=== PATIENT | male | born 1965 | race Native Hawaiian/Other Pacific Islander ===

== ENCOUNTER 2017-01-26 15:11 | Outpatient (CLI) | payer OTHER ==
[~2017-01-26 15:11] MED LIST: ALPR0.5T24 PO; AMOX875T8 PO; BACLOFEN10 MG OR; BACLOFEN10 MG PO; BISACODYL LAXATI5 MG PO; CETI10TA PO; CETIRIZINE10 MG PO; CYCL10TA35 PO; DOCU100C10 PO; DOXYCYCL HYC100 M1 PO; GABA100C2 PO; GABA300C2 PO; HYDR10TA47 PO; HYDR5TAB9 PO; NEURONTIN 100M100 MG PO; ONDA4TAB3 PO; PANT40TA PO; STOOL SOFTENER1 TA2 PO; STOOL SOFTNR100 M1 PO; STOOL SOFTNR100 MG OR; SUPPOSITORY PR; TRAM50TA PO; ULTRAM ER100 MG PO; XANAX XR1 MG OR; ZANTAC 75 PO; ZANTAC300 MG PO
== END 2017-01-26 21:42 | disposition home or self-care (01) ==
LOC: LAB 15:11
DX: N39.0 Urinary tract infection, site not specified (principal); L03.90 Cellulitis, unspecified
CPT/HCPCS: 87070; 87077; 87086; 87088; 87186; 87205

== ENCOUNTER 2017-04-27 13:57 | Outpatient (CLI) | payer OTHER ==
[~2017-04-27] VITALS: Ht 182.9 cm; Wt 49.9 kg
[2017-04-27 15:28] LABS: PLATELET COUNT 703 K/uL (142-355)
[2017-04-27 15:57] LABS: POTASSIUM 3.7 mmol/L (3.6-5.2); SODIUM 135 mmol/L (136-145)
== END 2017-04-27 16:30 | disposition home or self-care (01) ==
LOC: INF 13:57
PROVIDERS: Internal Medicine
DX: N39.0 Urinary tract infection, site not specified (principal); D64.89 Other specified anemias; G82.20 Paraplegia, unspecified; R63.4 Abnormal weight loss
CPT/HCPCS: 36591; 80053; 84153; 84439; 84443; 85027; 87077; 87086; 87088; 87186; 96365; J0696

== ENCOUNTER 2017-04-28 10:13 | Outpatient (CLI) | payer OTHER | END 2017-04-28 19:06 | disposition home or self-care (01) | LOC: INF 10:13 | DX: N39.0 Urinary tract infection, site not specified (principal) | CPT/HCPCS: 96365 ==

== ENCOUNTER 2017-04-29 10:00 | Outpatient (CLI) | payer OTHER | END 2017-04-29 19:00 | disposition home or self-care (01) | LOC: INF 10:00 | DX: N39.0 Urinary tract infection, site not specified (principal) | CPT/HCPCS: 81000; 96365; J0696 ==

== ENCOUNTER 2017-06-23 13:59 | Inpatient (IN) | payer OTHER ==
[~2017-06-23] VITALS: Ht 182.9 cm; Wt 60.5 kg
[2017-06-23 14:13] VITALS: BP 102/60; TEMP 98
[2017-06-23] MEDS ORDERED: TRAM50TA PO (14:16)
[2017-06-23] MEDS ORDERED: FENT12DI3 TD (14:16)
[2017-06-23 15:27] LABS: PLATELET COUNT 857 K/uL (142-355)
[2017-06-23 15:48] LABS: POTASSIUM 3.8 mmol/L (3.6-5.2); SODIUM 133 mmol/L (136-145)
--- NOTE | 2017-06-23 19:50 | NUR ---
PATIENT RECEIVED FROM ER VIA STRETCHER. ALERT AND ORIENTED X 3. PATIENT GIVEN EDUCATION REGARDING BED CONTRILS AND CALL LIGHT. INSTRUCTED TO KEEP BED IN LOW POSITION. NS INFUSING AT 150ML/HR PER 20G IN RFA. IV SITE WNL. LABS WERE DRAWN IN ER. FAMILY AT BEDSIDE.
[2017-06-23 20:47] VITALS: BP 92/57; TEMP 98; BMI 14.9
[2017-06-24] VITALS: BP 86/50; TEMP 98.3
[2017-06-24 04:00] VITALS: BP 84/52; TEMP 97.9
[2017-06-24 06:37] LABS: PLATELET COUNT 797 K/uL (142-355)
[2017-06-24 06:54] LABS: POTASSIUM 3.6 mmol/L (3.6-5.2); SODIUM 134 mmol/L (136-145)
[2017-06-24 08:00] VITALS: BP 90/56; TEMP 97.7
[2017-06-24 12:00] VITALS: BP 78/44; TEMP 98
[2017-06-24 16:00] VITALS: BP 97/63; TEMP 98.8
[2017-06-24 20:00] VITALS: BP 82/50; TEMP 98.8
[2017-06-25] VITALS: BP 87/50; TEMP 98.5
[2017-06-25 04:00] VITALS: BP 88/54; TEMP 98.4
[2017-06-25 05:21] LABS: PLATELET COUNT 699 K/uL (142-355)
[2017-06-25 05:44] LABS: POTASSIUM 3.3 mmol/L (3.6-5.2); SODIUM 136 mmol/L (136-145)
[2017-06-25 08:00] VITALS: BP 81/50; TEMP 98.5
--- NOTE | 2017-06-25 09:30 | NUR ---
DR WOODS NOTIFIED OF VITAL SIGNS AT THIS TIME. STATES THIS IS PT'S NORMAL RANGE FOR BP.
[2017-06-25 12:00] VITALS: BP 85/55; TEMP 98.1
[2017-06-25 16:00] VITALS: BP 92/57; TEMP 98.3
--- NOTE | 2017-06-25 17:47 | NUR ---
FENTANYL PATCH APPLIED TO R ARM AT THIS TIME.
[2017-06-25 20:00] VITALS: BP 91/56; TEMP 98.7
[2017-06-26] VITALS: BP 88/53; TEMP 99
--- NOTE | 2017-06-26 02:40 | NUR ---
06/25/17 2245 SECOND UNIT PRBC'S STARTED WITHOUT DIFFICULTY TO 20 GAUDGE TO RIGHT FOREARM.NO SIGNS/SYMPTOMS REACTION NOTED.CC 06/25/17 2350 PT TURNED AND REPOSTIONED,PT HAD LARGE BOWEL MOVEMENT BROWN LOOSE.DSY'S TO BUTTOCKS LEFT/RIGHT CHANGED.ALSO DSY TO TO LOWER BACK CHANGED.CC 06/26/17 0100 BLOOD INFUSION COMPLETED PT TOLERATED WELL.CC
[2017-06-26 04:00] VITALS: BP 84/53; TEMP 98.5
[2017-06-26 06:15] LABS: PLATELET COUNT 730 K/uL (142-355)
[2017-06-26 06:45] LABS: POTASSIUM 3.6 mmol/L (3.6-5.2); SODIUM 135 mmol/L (136-145)
[2017-06-26 08:00] VITALS: BP 83/52; TEMP 98.8
[2017-06-26 12:00] VITALS: BP 89/54; TEMP 98.4
[2017-06-26 16:00] VITALS: BP 100/60; TEMP 98
[2017-06-26 20:00] VITALS: BP 99/53; TEMP 98.8
[2017-06-27 00:08] VITALS: BP 90/60; TEMP 98.3
--- NOTE | 2017-06-27 02:15 | NUR ---
06/27/17 0130 PT GOWN AND LINEN CHANGED SMALL STOOL,RECTAL TUBE IN PLACE DRAINING SMALL AMOUNT STOOL TO BAG.DSY CHANGES DONE TO R/L BUTTOCKS ALSO RIGHT/LEFT LOWER CALF AREA.DSY DONE TO HEELS BILATERAL.PT TOLERATED WELL.CC
[2017-06-27 04:00] VITALS: BP 90/52; TEMP 98.1
[2017-06-27 05:11] LABS: PLATELET COUNT 757 K/uL (142-355)
[2017-06-27 05:42] LABS: POTASSIUM 2.8 mmol/L (3.6-5.2); SODIUM 136 mmol/L (136-145)
--- NOTE | 2017-06-27 06:37 | NUR ---
06/27/17 0600 OUTPUT X 1 STOOL,EMPTIED 25ML OUT OF RECTAL TUBE BAG.CC
[2017-06-27 08:00] VITALS: BP 87/51; TEMP 98.1
[2017-06-27 12:00] VITALS: BP 94/48; TEMP 98.1
--- NOTE | 2017-06-27 12:00 | NUR ---
PATIENT WITH STOOL AROUND RECTAL TUBE. DRESSINGS TO BUTTOCKS AND SACRUM SOILED WITH STOOL, REMOVED. WOUNDS CLEANED WITH DAKSARAI ROSS FLUFF GAUZE APPLIED TO WOUND BED, COVERED WITH DRY GAUZE AND SECURED WITH PAPER TAPE.
[2017-06-27 16:00] VITALS: BP 110/69; TEMP 98
--- NOTE | 2017-06-27 17:00 | NUR ---
#6 RIGHT CALF CLEANED WITH DAKINS SOLUTION, APPLIED SATURATED DAKINS FLUFF GAUZE TO WOUND BED, DRY FLUFF GAUZE APPLIED TO ARE AND SECURED WITH PAPER TAPE. #7 RIGHT HEEL CLEANED WITH NS. APPLIED SATURATED NS FLUFF GAUZE TO WOUND BED, DRY FLUFF GAUZE APPLIED AND SECURED WITH PAPER TAPE.
--- NOTE | 2017-06-27 19:00 | NUR ---
CLEANED SACRAL, RIGHT CHEEK, LEFT CHEEK WOUND BED WITH DAKINS SOLUTION, APPLIED SATURATED NS GAUZE TO WOUND BED, DRY GAUZE APPLIED TO AREAS AND SECURED WITH PAPER TAPE.
[2017-06-27 19:46] VITALS: BP 90/53; TEMP 98.3
[2017-06-28] VITALS (7 sets, daily range): BP systolic 85–114; BP diastolic 51–69; TEMP 98–99.4
[2017-06-28 04:26] LABS: POTASSIUM 4.1 mmol/L (3.6-5.2); SODIUM 137 mmol/L (136-145)
[2017-06-28 05:32] LABS: PLATELET COUNT 775 K/uL (142-355)
--- NOTE | 2017-06-28 22:30 | NUR ---
DRESSING CHANGES DONE AT THIS TIME TIME TO DARLIN LE'S - RIGHT HEEL AND CALF AND LEFT HEEL AND CALF. NO DRAINAGE NOTED FROM WOUNDS. CLANED WITH NORMAL SALINE. WET TO DRY DRESSING APPLIED. PT TOLERATED WELL. PT VOICES NO COMPLAINTS AT THIS TIME. WILL CONTINUE TO MONITOR.
[2017-06-29] VITALS (8 sets, daily range): BP systolic 90–137; BP diastolic 57–76; TEMP 98.4–99
[2017-06-29 03:57] LABS: PLATELET COUNT 790 K/uL (142-355)
[2017-06-29 04:24] LABS: POTASSIUM 3.6 mmol/L (3.6-5.2); SODIUM 135 mmol/L (136-145)
--- NOTE | 2017-06-29 14:00 | NUR ---
PICC LINE UNSUCCESSFUL AT THIS TIME. DR WOODS NOTIFIED AND NEW ORDERS TO CALL DR CM FOR POSSIBLE CENTRAL LINE PLACEMENT. DR CM NOTITIFIED AT THIS TIME AND AWAITING ANSWER. DR WOODS NOTIFIED OF PT STATUS AND ORDERS TO MOVE TO ICU AT THIS TIME. 1428- REPORT GIVEN TO JN GAYTAN IN ICU AND PT MOVED VIA BED AT THIS TIME.
--- NOTE | 2017-06-29 14:30 | NUR ---
RECIEVED REPORT PT MOVED TO ICU AWAKE ALERT. ORIENTED TO ROOM. REPOSITIONED IN BED HOB UP LEGS FEET ELEVATED ON PILLOWS. DRESSING CHANGED PRIOR TO COMING TO UNIT BY ROSANGELA RODRIGEZ RN. PT AWAKE RESTING IN BED WATCHING TV. IV FLUIDS AT 125. NO COMPLAINTS OF PAIN HR 105 , B/P 121/67.
--- NOTE | 2017-06-29 16:00 | NUR ---
DR CM HERE EXPLAINED THE NEED FOR LARGE IV LINE PT VERBALIZED UNDERSTANDING SIGNED CONSENT, PT POSITIONED FOR LINE PLACEMENT.
--- NOTE | 2017-06-29 16:30 | NUR ---
PT VINNY WELL ACCESS RIGHT NECK VINNY WELL NO BLEEDING, INSERTED TRIPLE LUMEN. GOOD BLOOD RETURN CHEST X RAY DONE. HOB UP VINNY WELL NO EKG CHANGES AND NO PROBLEMS BREATHING.
--- NOTE | 2017-06-29 16:50 | NUR ---
DR CM CALLED OK TO USE LINE RECIEVED CALL FROM X RAY WITH REPORT. GAVE DR CM REPORT LOOKED AT X RAY AGAIN OK TO USE LINE. NS DOWN TO 25 ML HR. AND PROCAL STARTED AT 100 ML HR. PT VINNY WELL. EMPTIED 1400 FROM CURRENT [place] VALLE CATH. REMOVED DEL VALLE CATH, CLEANED PENIS INSERTED NEW DEL VALLE, NO PROBLEMS NOTED RETURN CLEAR YELLOW URINE PT VINNY WELL NO PROBLEM NOTED.
--- NOTE | 2017-06-29 17:38 | NUR ---
PATIENT RESTING IN BED HOB UP WATCHING TV IV FLUIDS INFUSING WITHOUT DIFFICULTY. NO COMPLAINTS VOICED. CHANGED DRESSING TO RIGHT BUTTOCK SMALL AMOUT BM WET TO DRY DRESSING PLACED. NO COMPLAINTS.
--- NOTE | 2017-06-29 18:09 | NUR ---
PATIENT UP IN BED ATE FEW BITES FOR DINNER. C/O FOOD TO HARD OFFERED TO CUT CHOP FOODS STATED THAT HE DID NOT WANT ANY MORE ENCOURAGED TO EAT MORE. PT TOOK 30 ML 1 BOTTLE PROTEINEX.
--- NOTE | 2017-06-29 18:57 | NUR ---
IV FLUIDS CONTINUE INFUSING WITHOUT DIFFICULTY. FAMILY MEMBER TO BRING IN FOOD FROM OUTSIDE [employer], ENCOURAGED PT TO EAT. SITTING UP IN BED WATCHING TV.
[2017-06-30] VITALS (11 sets, daily range): BP systolic 103–128; BP diastolic 55–73; TEMP 98.6–99; BMI 50.0
[2017-06-30 06:31] LABS: PLATELET COUNT 781 K/uL (142-355)
[2017-06-30 06:39] LABS: POTASSIUM 3.6 mmol/L (3.6-5.2); SODIUM 134 mmol/L (136-145)
--- NOTE | 2017-06-30 20:27 | NUR ---
PRESSURE ULCER NOTED TO DISTAL SURFACE OF LLE (5 IN X 1 IN) AND LEFT HEEL (1 IN X 1 IN). SALINE IRRIGATION PROVIDED TO EACH. WET TO DRY DRESSING APPLIED. PRESSURE ULCER NOTED TO RIGHT DISTAL SURFACE OF LOWER LEG (4 IN X 1 IN) AND RIGHT HEEL (O.5 X 0.5). SALINE IRRIGATION PROVIDED TO EACH AND WET TO DRY DRESSING PROVIDED. PRESSURE ULCERS NOTED TO SACRAL AREA - 1 ON LEFT (3.75 IN X 1.75 IN), 1 ON RIGHT SIDE (2.75 X 1.75), AND 1 MIDLINE 7 IN X 5 IN). WET TO DRY SALINE DRESSINGS PROVIDED TO EACH AND SECURED WITH TAPE.
[2017-07-01] VITALS (8 sets, daily range): BP systolic 99–138; BP diastolic 53–80; TEMP 98.6–99.1
[2017-07-01 06:18] LABS: PLATELET COUNT 736 K/uL (142-355)
[2017-07-01 06:37] LABS: POTASSIUM 3.6 mmol/L (3.6-5.2); SODIUM 137 mmol/L (136-145)
--- NOTE | 2017-07-01 15:29 | NUR ---
1300 ONE BOTTLE PROTEINEX GIVEN PO. TOLERATED WITHOUT DIFFICULTY.
--- NOTE | 2017-07-01 19:46 | NUR ---
1844 PROVIDED COMPLETE BED BATH AND LINEN CHANGE. REMOVED OLD DRESSINGS AND PROVIDED NEW WET TO DRY DRESSINGS TO WOUNDS AND RE-COVERED WITH DRY DRESSINGS. wOUND TO RIGHT LEG MEASURED 13 CM X 1.5 CM AND WOUND TO LEFT LEG MEASURED 10 CM X 1 CM. WOUNDS TO BACK MEASURED 9 CM X 5 CM (TOP MIDLINE WOUND), 5 CM X 9 CM (LEFT SACRAL WOUND), AND 13 CM X 1.5 CM (RIGHT SACRAL). NOT PROVIDE COVERAGE FOR INSULIN DUE TO PATIENT NOT EATING. ASKED ONGOING SHIFT TO COVER WHEN PATIENT EATS. ENCOURAGED PT. TO DRINK SECOND BOTTLE OF PROTEINEX. REFUSED AT THIS TIME. STATED, "I'M GOING TO EAT. I'LL DRINK IT LATER. REPORTED TO ONCOMING SHIFT. REPORTED TO ONCOMING SHIFT THAT PT. NEEDS ORAL CARE PROVIDED.
--- NOTE | 2017-07-01 22:36 | NUR ---
PT GIVEN PROTEINEX PO PER ORDER.
[2017-07-02] VITALS (10 sets, daily range): BP systolic 103–145; BP diastolic 52–90; TEMP 98.9–99.3
--- NOTE | 2017-07-02 05:10 | NUR ---
06/30/17 AT 2100LATE ENTRY: PT GIVEN PROTEINEX 30ML PER ORDER.
[2017-07-02 06:52] LABS: POTASSIUM 3.9 mmol/L (3.6-5.2); SODIUM 136 mmol/L (136-145)
[2017-07-02 07:22] LABS: PLATELET COUNT 681 K/uL (142-355)
--- NOTE | 2017-07-02 07:30 | NUR ---
CHANGED DRESSING TO BUTTOCKS INC SMALL STOOL SKIN CARE WET TO DRY DRESSING APPLIED TO BUTTOCKS. REPOSITIOND IN BED. SLEEPING AT INTERVALS.
--- NOTE | 2017-07-02 09:20 | NUR ---
ENCOURAGED PT TO EAT STATES THAT HE FEELS FULL. WILL TRY ENSURE. IV FLUIDS CONTINUE WITHOUT DIFFICULTY. TOOK AM MEDS. RICA BLANCO'S NURSE VISITED.
--- NOTE | 2017-07-02 10:00 | NUR ---
Timmy TILLMAN RN HER ALSO TALKED WITH PATIENT ABOUT POSSIBLE NEEDS FOR SURGERY COLOSTOMY AND PEG TUBE PLACEMENT ALSO TALKED ABOUT PT GOING TO [facility], FOR REHAB.
--- NOTE | 2017-07-02 10:43 | NUR ---
PT TOOK SIPS OF OJ. OFFERED ENSURE PT REFUSED AT THIS TIME REPOSITIONED ON LEFT SIDE. CHECKED NO BM NOTED.
--- NOTE | 2017-07-02 12:05 | NUR ---
AGNES GUTIERREZ RN FROM [facility] VISITED TALK WITH PT. PT REPOSITIONED IN BED C/O BACK PAIN RATED 8 "FEELS LIKE BURNING PAINS" RECIEVED TRAMADOL 50 ONE TAB PO.
--- NOTE | 2017-07-02 13:57 | NUR ---
"FEELING BETTER" PAIN MEDS EFFECTIVE. TAKING SIPS OF ENSURE PLUS. RESTING IN BED WATCHING TV.
--- NOTE | 2017-07-02 16:00 | NUR ---
CALLED TO DR WOODS PT C/O PAIN BACK TO [facility] FOR TRAMADOL. RECIEVED NEW ORDERS. Timmy SHERIDAN RN HERE TALKED WITH PT AND GIRLFRIEND HAVE AGREED TO GO TO [facility].
--- NOTE | 2017-07-02 16:11 | NUR ---
PATIENT WAS REFERRED TO [facility] ON Sunday06/29/17 AND WAS ALSO MOVED TO ICU. AGNES GUTIERREZ FROM [facility] ([facility]) CAME THIS AM TO SEE PATIENT AND REVIEW ALL RECORDS. [facility] HAS AGREED TO ACCEPT THIS PATIENT AND PATIENT HAS AGREED TO GO HOWEVER PATIENT WANTS TO TALK WITH HIS AND SHE IS NOT HERE AT THIS TIME. PATIENT CALLED ABOUT 2:00 AND ASK HER TO COME TO THE HOSPITAL, SHE CAME AND I EXPLAINED TO HER ABOUT THE [facility] AND I ALSO CALLED PALA AND LET PATIENT'S TALK TO HER. EVERYONE AGREED AND PATIENT IS GOING TO LT TODAY AND IS GOING WITH THE PATIENT. PATIENT'S HAS GONE HOME TO GET CLOTHES AND WILL RETURN TO FOLLOW AMBULANCE TO [facility] IN [place]. PATIENT SHOULD BE LEAVING AROUND 5:00 OR 5:30. PATIENT WILL BE GOING TO ROOM [address] MATA[address]
--- NOTE | 2017-07-02 16:40 | NUR ---
PATIENT RECIEVED DILAUDID 1 MG IV PUSH FOR BACK PAINS. INC OF BM. PT TURNED AND CLEANED CHANGED ALL DRESSING TO BUTTOCKS, THIGHS CALF, RIGHT AND LEFT LEGS AND HEELS WET TO DRY DRESSING APPLIED ORDERED.
--- NOTE | 2017-07-02 17:57 | NUR ---
PTS HOME MEDS SENT WITH HIM
--- NOTE | 2017-07-02 18:00 | NUR ---
CALLED REPORT EARLIER TO [facility]. MIGEL NURSE TAKING REPORT. EMS HERE [facility] RECIEVED REPORT. DISCONTINUED IV LEFT ARM CATH INTACT NO REDNESS NO SWELLING AT SITE. STOPPED IV FLUIDS FOR TRANSFER [facility] WILL NOT BE COMING BACK THIS WAY TO RETURN PUMP. FLUSHED EACH LINE ON TRIPLE LUMEN CATH. FLUSHED EASILY WITH GOOD BLOOD RETURN. RETURNE HOME MEDS TO PATIENT AND GIRLFRIEND MISS ROSA. PATIENT DISCHARGED VIA EMS TO GO TO [facility], NO COMPLAINTS VOICED.
== END 2017-07-02 18:00 | DRG 385 ==
LOC: ED 13:59 → MED/SURG 18:40 → ICU 06-29 14:14
PROVIDERS: Family Medicine; Internal Medicine; ADMIT Emergency Medicine
PROC: 30233N1 Transfusion of Nonautologous Red Blood Cells into Peripheral Vein, Percutaneous Approach (ICD-10-PCS; principal; 2017-06-25)
PROC: 05HM33Z Insertion of Infusion Device into Right Internal Jugular Vein, Percutaneous Approach (ICD-10-PCS; 2017-06-29)
PROC: B543ZZA Ultrasonography of Right Jugular Veins, Guidance (ICD-10-PCS; 2017-06-29)
DX: K51.00 Ulcerative (chronic) pancolitis without complications (principal); L89.154 Pressure ulcer of sacral region, stage 4; L89.324 Pressure ulcer of left buttock, stage 4; L89.314 Pressure ulcer of right buttock, stage 4; L89.894 Pressure ulcer of other site, stage 4; L89.624 Pressure ulcer of left heel, stage 4; M86.8X8 Other osteomyelitis, other site; N39.0 Urinary tract infection, site not specified; E46 Unspecified protein-calorie malnutrition; G82.20 Paraplegia, unspecified; E83.42 Hypomagnesemia; B96.20 Unspecified Escherichia coli [E. coli] as the cause of diseases classified elsewhere; D64.89 Other specified anemias; D69.6 Thrombocytopenia, unspecified; E87.6 Hypokalemia; R11.2 Nausea with vomiting, unspecified; E86.0 Dehydration; K52.89 Other specified noninfective gastroenteritis and colitis; N50.89 Other specified disorders of the male genital organs; I87.8 Other specified disorders of veins
CPT/HCPCS: 36415; 36591; 51702; 80053; 81000; 82150; 82272; 82962; 83605; 83690; 83735; 84100; 84478; 85027; 85651; 86039; 86140; 86850; 86900; 86901; 86922; 87070; 87077; 87086; 87088; 87186; 87205; 87324; 87449; 93005; 96361; 96365; 96368; 96372; 99284; A9561; C1751; C1768; J1170; J2270; J2405; J2543; J3475; J3480; J3490; P9016

== ENCOUNTER 2018-03-18 11:11 | Outpatient (CLI) | payer OTHER ==
[~2018-03-18 11:11] MED LIST changes: +FENT12DI3 TD
== END 2018-03-18 21:23 | disposition home or self-care (01) ==
LOC: LABW 11:11
DX: D64.89 Other specified anemias (principal); R53.83 Other fatigue; K29.60 Other gastritis without bleeding
CPT/HCPCS: 36415; 83735; 84402; 84403

== ENCOUNTER 2018-04-23 16:39 | Emergency (ER) | payer OTHER ==
[~2018-04-23] VITALS: Ht 182.9 cm; Wt 54.4 kg
[2018-04-23 16:50] VITALS: TEMP 97.7
[2018-04-23 17:30] VITALS: BP 122/70
== END 2018-04-23 18:03 | disposition short-term general hospital (02) ==
LOC: ED 16:39
PROC: 0T9B70Z Drainage of Bladder with Drainage Device, Via Natural or Artificial Opening (ICD-10-PCS; principal; 2018-04-23)
DX: N32.2 Vesical fistula, not elsewhere classified (principal)
CPT/HCPCS: 51702; 99283

== ENCOUNTER 2018-11-26 15:41 | Outpatient (CLI) | payer OTHER ==
[2018-11-26 16:14] LABS: PLATELET COUNT 857 K/uL (142-355)
[2018-11-26 16:37] LABS: POTASSIUM 4.7 mmol/L (3.6-5.2)
== END 2018-11-26 21:18 | disposition home or self-care (01) ==
LOC: LAB 15:41
PROVIDERS: Physician Assistant
DX: D47.3 Essential (hemorrhagic) thrombocythemia (principal); D64.9 Anemia, unspecified; R53.82 Chronic fatigue, unspecified; R35.1 Nocturia; R30.0 Dysuria
CPT/HCPCS: 80053; 80061; 82306; 82607; 83036; 83735; 84439; 84443; 85027; 85651

== ENCOUNTER 2018-12-30 14:11 | Outpatient (CLI) | payer OTHER ==
[2018-12-30 15:31] LABS: PLATELET COUNT 854 K/uL (142-355)
== END 2018-12-30 20:06 | disposition home or self-care (01) ==
LOC: LABW 14:11
PROVIDERS: Physician Assistant
DX: K51.90 Ulcerative colitis, unspecified, without complications (principal); D50.9 Iron deficiency anemia, unspecified
CPT/HCPCS: 36415; 83540; 83550; 85027; 86850; 86900; 86901